=== PATIENT | male | born 1980 | race Hispanic/Latino ===

== ENCOUNTER 2021-04-04 16:19 | Emergency (ER) | payer OTHER, SELFPAY ==
[2021-04-04 16:21] VITALS: BP 123/108; PULSE 82; RESP 16; TEMP 35.7; O2SAT 98; BMI 26.9
--- NOTE | 2021-04-04 16:27 | EKG12_ITS ---
Test Reason : CP Blood Pressure : / mmHG Vent. Rate : 082 BPM Atrial Rate : 082 BPM P-R Int : 156 ms QRS Dur : 092 ms QT Int : 358 ms P-R-T Axes : 047 062 026 degrees QTc Int : 418 ms Normal sinus rhythm Normal ECG Confirmed by PADILLA HERNANDEZ MD ([id number]), scientific editor ROSIBEL SANTANA ([id number]) on 04/07/2021 9:46:49 AM Referred By: TESS Confirmed By:PADILLA HERNANDEZ MD
--- NOTE | 2021-04-04 17:01 | ED.VIS.CHEST ---
HPI History of Present Illness Chief Complaint: Chest Pain Informant: patient Onset/Context/Timing Onset: Weeks (1) Activity at onset: sudden and onset Timing: Intermittent and Lasts (20min - 1-2hrs) Quality: Positive for Sharp and Stabbing Location: Left Chest (With occasional discomfort in left upper arm associated with it) Current Severity: Gone Maximum Severity: Moderate Worsened By: - (Lying down at night); Not Worsened By Exertion, Movement of Arm, Movement of Torso, Palpation and Breathing Relieved By: Nothing Associated Symptoms: Positive for Diaphoresis, Dyspnea and Palpitations (Fast sometimes but not always. No irregular sensations.); Negative for Nausea, Vomiting, Cough, Fever, Lightheadedness and Acid Reflux Narrative Narrative: Patient presents out of concern for intermittent chest pain along with left upper extremity discomfort, sweating, and fast heartbeat at times associated with all of this. Occurs more often in the middle of the night, waking him up short of breath all of a sudden. States he stopped smoking sometime ago and now just vapes. He does not use any other illicit substances, including cocaine. He has never had this before. Does not recall anything changing a week ago such as diet, medications, lktp-[id number]-[id number] pills. He does not take any prescriptions. He denies any history of DVT or PE, no leg pain or swelling, no recent immobilization, long travel or travel out of the area, hospitalization, or surgery. CVD Risk Factors: Positive for Smoking; Negative for Hypertension, Diabetes, Hypercholesterolemia and Family History 1' </=55 PE Risk Factors: Negative for Recent Travel/Surgery, Recent Immobilization, Prior DVT or PE, Cancer and OCP + Smoking + >/=35 PFSH PFSH Medical History no medical history no medical history Home Medications pantoprazole 40 mg PO DAILY #30 tab 04/04/21 [Rx Last Taken Unknown] Allergy/AdvReac Type Severity Reaction Status Date / Time No Known Allergies Allergy Verified 04/04/21 16:20 Surgical History Hx of cholecystectomy Social History Smoking Status: Current every day smoker tobacco type: e-cigarettes ROS ROS ED Constitutional Constitutional ED: Reports sweats; Denies chills or fever(s) Eyes Eyes: Denies change in vision or diplopia ENT ENT ED: Denies rhinorrhea or sore throat Cardiovascular Cardiovascular: Reports chest pain, paroxysmal nocturnal dyspnea, pounding heartbeat and racing heartbeat; Denies orthopnea or pedal edema Respiratory/Chest Respiratory/Chest: Reports paroxysmal nocturnal dyspnea; Denies cough, dyspnea on exertion or orthopnea Gastrointestinal Gastrointestinal: Denies abdominal pain, diarrhea, nausea or vomiting Genitourinary Genitourinary ED: Denies dysuria or hematuria Musculoskeletal Musculoskeletal: Denies back pain or neck pain Integumentary Denies abscess or rash Neurologic Neurologic: Denies headache(s), paresthesias or weakness Psychiatric Psychiatric: Denies anxiety or suicidal thoughts EXAM Physical Exam Const Vital Signs: 04/04/21 16:21 04/04/21 16:45 04/04/21 17:50 Temperature 96.2 F L Temperature Source Temporal Pulse Rate 82 77 Respiratory Rate 16 19 H Respiratory Effort Normal Non-Labored Respiratory Pattern Normal Blood Pressure 123/108 H 123/84 H Blood Pressure Mean 113 97 Pulse Ox 98 99 Oxygen Delivery Method Room Air Room Air 04/04/21 18:10 Temperature Temperature Source Pulse Rate 77 Respiratory Rate 20 H Respiratory Effort Respiratory Pattern Blood Pressure 114/79 Blood Pressure Mean Pulse Ox 97 Oxygen Delivery Method Positive well nourished and well developed General Appearance ED: well developed and NAD HEENT Reports moist mucous membranes normocephalic and atraumatic Eyes PERRL and EOMs intact bilaterally Neck full ROM and supple Resp normal respiratory effort and clear to auscultation bilaterally Cardio regular rate, regular rhythm and no murmurs Rate: Negative for tachycardic GI non-tender and non-distended Auscultation: normoactive bowel sounds Palpation: soft Back/Spine no CVA tenderness General Back: other FROM Extremity normal to inspection and no calf tenderness General Extremety ED: Negative for edema, pulses abnormal or tenderness General Extremity: Negative for edema or pulses abnormal Neuro oriented x3, CN's II-XII intact bilaterally and no sensory deficits noted Sensorium / Orientation: awake and alert Motor Exam: strength 5/5 throughout Skin no rashes or lesions noted and no wounds Heart Score History: Moderately Suspicious ECG: Normal Age: </= 45 years Risk Factors: 1 or 2 Risk Factors Troponin: </= Normal Limit Score: 2 MDM MDM MDM Narrative Medical decision making narrative: Patient's PERC score is 0. Therefore no further work-up necessary in order to rule out pulmonary embolus at this time. His EKG is normal. His chest x-ray is normal, his enzymes are unremarkable and his blood counts are stable. Patient was reassured. Although I am not able to rule out the possibility of an intermittent dysrhythmia, since this occurs more often at night I suspect it is more likely to be esophageal/GI related. Possibilities include gastroesophageal reflux, esophageal spasm, this is not an exclusive list. Start the patient on a PPI and have him follow-up, he is comfortable with that plan. Supporting this, patient had an episode of the discomfort while he was here in the emergency department on the monitor. There were no dysrhythmias, ectopy, or changes in his rhythm strip on the monitor which was normal sinus rhythm in the seventies. He was given a GI cocktail and notes resolution of the discomfort. Lab Data Attestation: I reviewed the patient's lab results. Labs: Laboratory Results - last 24 hr 04/04/21 04/04/21 16:44 16:44 WBC 6.6 RBC 4.99 Hgb 14.6 Hct 43.1 MCV 86.4 MCH 29.3 MCHC 33.9 RDW Std Deviation 37.3 RDW Coeff of Dasia 11.9 Plt Count 317 MPV 9.6 Immature Gran % (Auto) 0.300 Neut % (Auto) 65.8 Lymph % (Auto) 24.1 Perkins % (Auto) 6.5 Eos % (Auto) 2.4 Baso % (Auto) 0.9 Absolute Neuts (auto) 4.3 Absolute Lymphs (auto) 1.59 Nucleated RBC % 0 Sodium 142 Potassium 3.8 Chloride 110 H Carbon Dioxide 25.0 Anion Gap 7 BUN 13 Creatinine 1.09 Estim Creat Clear Calc 76.80 Est GFR (MDRD) Af Amer 95 Est GFR (MDRD) Non-Af 79 BUN/Creatinine Ratio 11.9 Glucose 142 H Calcium 9.0 Troponin I High Sens 3 Radiography Diagnostic Testing: Clinical Impression(s) from Imaging Studies Chest X-Ray 04/04/21 17:05 IMPRESSION: Normal x-ray examination of the chest. Electronically Signed: Wilfredo Romano DO at 18:01 EST Tel [phone], Service support , Rhythm Strip Rhythm Strip: Sinus Rhythm Rate: 67 Ectopy: None EKG Initial EKG: Attestation: I personally reviewed and interpreted this EKG as follows: Interpretation: Sinus Rhythm and No Acute Injury Pattern Comments: Normal EKG Prior: No Prior Discharge Plan Triage Chief Complaint: Chest Pain ED Provider: Riaz Ramirez Dx/Rx/DC Orders Clinical Impression: Intermittent left-sided chest pain Instructions: ED Chest Pain, Uncertain Cause Prescriptions: New pantoprazole 40 mg tablet,delayed release (DR/EC) 40 mg PO DAILY Qty: 30 RF: 0 Primary Care Provider: Roland Prado Referrals: Roland Prado MD [Primary Care Provider] - 3-5 Days if not improving NOT,DEFINED [NON-STAFF] - Disposition Disposition: Home, Self Care Discharge Date/Time: 04/04/21 18:13
--- NOTE | 2021-04-04 17:05 | RAD_ITS ---
STUDY: X-RAY CHEST REASON FOR EXAM: Male, 40 years old. Intermittent chest pain TECHNIQUE: Frontal view COMPARISON: None. FINDINGS: The lungs are clear and expanded. There is no demonstrated pleural abnormality. Normal size heart. Normal mediastinum and chris. Normal visualized pulmonary arteries. Normal visualized aortic arch and descending thoracic aorta. Degenerative changes of the thoracic spine. Normal visualized ribs, clavicles, and shoulders. There is no demonstrated abnormality of the visualized soft tissue structures of the upper abdomen. RAD/Chest 1 View (Portable) IMPRESSION: Normal x-ray examination of the chest. Electronically Signed: Wilfredo Romano DO at 18:01 EST Tel [phone], Service support ,
[2021-04-04 17:13] LABS: Absolute Lymphocyte Count 1.59 X10^3/uL (0.83-4.51); Absolute Neutrophil Count 4.3 X10^3/uL (2.0-7.7); Basophil# 0.06 X10^3/uL; Basophil% 0.9 % (0-1); Eosinophil# 0.16 X10^3/uL; Eosinophils% 2.4 % (0-5); Hematocrit 43.1 % (40-54); Hemoglobin 14.6 g/dL (13.0-16.5); Lymphocyte # 1.59 X10^3/ul (0.83-4.51); Lymphocyte % 24.1 % (19-41); Mean Corp Hgb Conc 33.9 g/dL (32-36); Mean Corpuscular Hgb 29.3 pg (27.0-32.0); Mean Corpuscular Volume 86.4 fL (80-94); Mean Platelet Vol. 9.6 fl (6.2-12.0); Monocyte# 0.43 X10^3/uL; Monocyte% 6.5 % (0-10); NRBC Flagged by Analyzer 0 % (0-5); Neutrophil # 4.34 X10^3/uL (2.7-7.7); Neutrophil % 65.8 % (47-70); Platelet Count 317 K/mm3 (150-450); RBC Distribution Width CV 11.9 % (11.6-14.6); RBC Distribution Width SD 37.3 fl (35.1-43.9); Red Blood Count 4.99 M/mm3 (4.6-6.2); White Blood Count 6.6 K/mm3 (4.4-11.0)
[2021-04-04 17:26] LABS: Anion Gap 7 (5-15); BUN 13 mg/dL (7-18); BUN/Creat Ratio 11.9 RATIO (10-20); Chloride 110 mmol/L (98-107); Creatinine, Serum 1.09 mg/dL (0.70-1.30); EST Glomerular Filtration Rate 79 mL/min (>60); Est Glom Filt Rate - Afr Amer 95 mL/min (>60); Glucose 142 mg/dL (74-106); Potassium 3.8 mmol/L (3.5-5.1); Sodium Level 142 mmol/L (136-145); Troponin-I HS 3 pg/mL (3.0-78.0)
[2021-04-04] MEDS: Pantoprazole Sodium 40 MG Tablet PO (17:33)
[2021-04-04] MEDS: Mag Hydrox/Al Hydrox/Simeth 30 ML UDC PO (17:43)
[2021-04-04 17:50] VITALS: BP 123/84; PULSE 77; RESP 19; O2SAT 99
[2021-04-04 18:10] VITALS: BP 114/79; PULSE 77; RESP 20; O2SAT 97
== END 2021-04-04 18:13 | disposition home or self-care (01) ==
PROVIDERS: Emergency Provider Emergency Medicine; PCP Family Medicine
DX: R07.89 Other chest pain (principal); F17.210 Nicotine dependence, cigarettes, uncomplicated; Z90.49 Acquired absence of other specified parts of digestive tract; R06.02 Shortness of breath
CPT/HCPCS: 71045; 80048; 84484; 85025; 93005; 99284; A4216

== ENCOUNTER 2021-05-11 11:02 | Outpatient (CLI) | payer OTHER, SELFPAY ==
--- NOTE | 2021-05-11 11:10 | RAD_ITS ---
STUDY: X-RAY - LUMBOSACRAL SPINE REASON FOR EXAM: Male, 40 years old. PAIN TECHNIQUE: 6 view(s) of the lumbosacral spine were obtained including oblique views and flexion and extension views.. COMPARISON: None FINDINGS: Normal lumbar lordosis. There is no substantial scoliosis. There is normal alignment of the vertebrae. There is multilevel endplate spondylosis of the lumbar vertebrae. Normal disc space heights. Normal bilateral sacral ala, sacroiliac joints, and visualized sacrum. Normal visualized soft tissue structures. RAD/L/S Spine w Bend Min 6 Vw IMPRESSION: Degenerative changes of the spine, as detailed above. Electronically Signed: Jaden Alanis MD at 13:03 EST ,
[2021-05-11 12:33] LABS: Erythrocyte Sedimentation Rate 11 mm/hr (0-20)
[2021-05-11 13:08] LABS: AST(SGOT) 36 U/L (15-37); Alanine Aminotransfer ALT/SGPT 104 U/L (16-61); Albumin, Serum 4.4 g/dL (3.2-5.0); Alkaline Phosphatase 83 U/L (45-117); Anion Gap 5 (5-15); BUN 11 mg/dL (7-18); BUN/Creat Ratio 11.6 RATIO (10-20); Calcium,Total 9.3 mg/dL (8.5-10.1); Chloride 105 mmol/L (98-107); Creatinine, Serum 0.95 mg/dL (0.70-1.30); EST Glomerular Filtration Rate 93 mL/min (>60); Est Glom Filt Rate - Afr Amer 112 mL/min (>60); Globulin 4.5 g/dL (2.2-4.2); Glucose 89 mg/dL (74-106); Potassium 3.8 mmol/L (3.5-5.1); Protein, Total 8.9 g/dL (6.4-8.2); Sodium Level 138 mmol/L (136-145)
[2021-05-12 20:50] LABS: ANTINUCLEAR ANTIBODIES DIRECT Negative (Negative)
[2021-05-13 12:12] LABS: Hepatitis C Antibody Non-Reactive (Nonreactive)
[2021-05-15 17:07] LABS: Testosterone, Free 14.45 ng/dL (5.00-21.00)
[2021-05-15 19:09] LABS: Testosterone, % Free 2.79 % (1.50-4.20); Testosterone, Total 518 ng/dL (264-916)
== END 2021-05-11 23:59 | disposition short-term general hospital (02) ==
LOC: MTLAB 11:03
PROVIDERS: PCP Family Medicine; Referring Provider Family Medicine; Visit Provider Family Medicine
DX: M54.50 Low back pain, unspecified (principal); R53.83 Other fatigue; N52.9 Male erectile dysfunction, unspecified; L74.512 Primary focal hyperhidrosis, palms; F41.1 Generalized anxiety disorder; M43.06 Spondylolysis, lumbar region
CPT/HCPCS: 36415; 72114; 80053; 82306; 84402; 84403; 84443; 85652; 86038; 86803

== ENCOUNTER → 2022-08-18 | Outpatient (CLI) | payer OTHER, SELFPAY ==
[2022-08-18 10:39] LABS: Absolute Lymphocyte Count 1.78 X10^3/uL (0.83-4.51); Absolute Neutrophil Count 4.2 X10^3/uL (2.0-7.7); Basophil# 0.08 X10^3/uL; Basophil% 1.2 % (0-1); Eosinophil# 0.23 X10^3/uL; Eosinophils% 3.4 % (0-5); Hematocrit 50.1 % (40-54); Hemoglobin 16.7 g/dL (13.0-16.5); Lymphocyte # 1.78 X10^3/ul (0.83-4.51); Lymphocyte % 26.3 % (19-41); Mean Corp Hgb Conc 33.3 g/dL (32-36); Mean Corpuscular Hgb 29.5 pg (27.0-32.0); Mean Corpuscular Volume 88.4 fL (80-94); Mean Platelet Vol. 10.1 fl (6.2-12.0); Monocyte# 0.42 X10^3/uL; Monocyte% 6.2 % (0-10); NRBC Flagged by Analyzer 0 % (0-5); Neutrophil # 4.23 X10^3/uL (2.7-7.7); Neutrophil % 62.6 % (47-70); Platelet Count 304 K/mm3 (150-450); Red Blood Count 5.67 M/mm3 (4.6-6.2); White Blood Count 6.8 K/mm3 (4.4-11.0)
[2022-08-18 10:52] LABS: Vitamin D,25 Hydroxy 53.6 ng/mL
[2022-08-18 11:06] LABS: AST(SGOT) 27 U/L (15-37); Alanine Aminotransfer ALT/SGPT 56 U/L (16-61); Albumin, Serum 4.1 g/dL (3.2-5.0); Alkaline Phosphatase 67 U/L (45-117); Bilirubin, Direct 0.09 mg/dL (0.00-0.30); Ferritin 53 ng/mL (26-388); Globulin 4.1 g/dL (2.2-4.2); Protein, Total 8.2 g/dL (6.4-8.2)
[2022-08-22 06:37] LABS: Alpha Antitrypsin Serum 151 mg/dL (101-187); Beef <0.10 kU/L (Class 0); Chocolate <0.10 kU/L (Class 0); Corn <0.10 kU/L (Class 0); Egg, Whole <0.10 kU/L (Class 0); Milk (Cow) <0.10 kU/L (Class 0); Peanut <0.10 kU/L (Class 0); Pork <0.10 kU/L (Class 0); Soybean <0.10 kU/L (Class 0); Wheat <0.10 kU/L (Class 0)
[2022-08-23 07:07] LABS: Deamidated Gliadin IgA 6 units (0-19); Deamidated Gliadin IgG 2 units (0-19); Endomysial Antibody IgA Negative (Negative); Immunoglobulin A 277 mg/dL (90-386); Testosterone, % Free 2.49 % (1.50-4.20); Testosterone, Free 20.94 ng/dL (5.00-21.00); Testosterone, Total 841 ng/dL (264-916); t-Transglutaminase IgA <2 U/mL (0-3)
== END | disposition home or self-care (01) ==
LOC: MTLAB 07:15
PROVIDERS: PCP Family Medicine; Referring Provider Family Medicine; Visit Provider Family Medicine
DX: R53.83 Other fatigue (principal); E55.9 Vitamin D deficiency, unspecified; R74.01 Elevation of levels of liver transaminase levels
CPT/HCPCS: 36415; 80076; 82103; 82306; 82728; 82784; 83516; 84402; 84403; 85025; 86003; 86005; 86255

== ENCOUNTER 2022-12-27 16:30 | Outpatient (RCR) | payer OTHER, SELFPAY ==
--- NOTE | 2022-12-01 15:47 | HP.PTEVAL ---
Patient's Visit Information Visit Information Visit Information: LOPEZ KARIMI is a 42 year old M referred to Physical Therapy by SHILOH Caballero with a diagnosis of Left Shoulder Pain. 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 Off work since Nov 16 and he goes back to work tomorrow. His job requires him to have full function. He will be able to light duty starting tomorrow- he is not sure what his light duty will include. He is right hand dominate. He has pain at night- he normally sleeps on his left side. Pain is located in the anterior shoulder- more deep in the joint- Agg: over head, sleeping, lifting anything Worst: 7/10 Best: 0/10 Eases: ice, icy hot patches, lotion/creams, exercises from you tube. Describes the pain as achy. No radiating pain- does have some numbness in to his elbow. No issues with his hand. He had neck pain for the first few days after the injury but none since. No BRANCH, blurred vision or dizziness. Normally he is active outside of work. PMhx/Meds: see list in chart. Objective Objective: Posture: FH, RS- guarding of the left UE- can correct but does not maintain Gait: no deviation noted ROM: painful arc with flexion and abduction but does have full motion. IR: Lumbar with pain, ER: 30 degrees Cervical/Elbow/Wrist: WFL no pain Strength: Health Policy Nurse: Left: 100 Right: 100 Elbow: Flexion: 27 Extn: 35 Shoulder at neutral: extn: 28 (6/10) flexion: 36 (0/10) abd 25 (6/10) add: 39 (0/10) IR: 23 (6/10) ER: 13 (10/18) Special Tests L Shoulder Lift Off Test - Subscapular Tear: Positive L Shoulder Empty Can - SS: Positive L Shoulder Belly Press - SupScap: Positive L Shoulder Neer - Impingement: Positive L Shoulder Richardson Kareem - Impingement: Positive Balance/Special Test Scores Quick DASH Score: 29.5450 Goals Goal 1:: Patient will be I with HEP and progression Goal Time Frame: 4-6 Weeks Goal 2:: Patient will demo full pain free AROM of the left shoulder Goal Time Frame: 4-6 Weeks Goal 3:: Patient will maintain proper posture t/o tx session to demo increased scap s/s Goal Time Frame: 4-6 Weeks Goal 4:: Patient will report 80% improvement Goal Time Frame: 4-6 Weeks Rehabilitation Potential Physical Therapy Diagnosis: Patient presents with hypomobility- he has decreased pain free ROM scapular strength/stabilization and muscular endurance leading to poor posture and increased pain with ADL's. Rehabilitation Potential: Good Anticipated Interventions Patient/Client Instruction: Educate patient on: Benefits of Fitness Program Therapeutic Exercise to Include: Strength training, Endurance training, Body mechanics, Postural training, Flexibilty training, Passive ROM, Active ROM, Dynamic Lumbar Stabilization and Scapular Strength/Stabilization TENS: Yes Cryotherapy (ice pack, ice massage): Yes Thermo therapy (hot pack): Yes Ultrasound (thermal/non thermal): Yes Text: Thank you for the opportunity to evaluate your patient. For Medicare and Medicare HMO plans, please review the plan of care and approve it. It will need to be FAXED BACK to us at [phone] for Medicare purposes. For Medicare only, by signing this I certify the plan of care. Please let me know if there are questions or concerns regarding this plan of care. Physician Signature: Date:
--- NOTE | 2022-12-27 16:29 | HP.PTDCSUM ---
Discharge Summary D/C summary: It has been my pleasure to treat LOPEZ KARIMI referred by SHILOH Caballero, with the diagnosis of Left Shoulder Pain for a total of 8 visit(s). Discharge Date: Please see the following information for a summary of their discharge status. Subjective Subjective: Patient reports that he just saw the MD who released him to go back to work full duty. Reports the shoulder has full motion- gets more fatigued than anything else. No pain at all. Pain L SH: Pain Intensity (Out of 10): 0 Overall Improvement % Improvement: 95 Objective Objective/Function: Posture: good throughout Gait: no deviation noted ROM: WFL in all planes Strength: Shoulder: 5/5 in all planes, Elbow: 5/5 Palpation: no pain Goals Goal 1:: Patient will be I with HEP and progression Goal Progress: Goal Met Goal 2:: Patient will demo full pain free AROM of the left shoulder Goal Progress: Goal Met Goal 3:: Patient will maintain proper posture t/o tx session to demo increased scap s/s Goal Progress: Goal Met Goal 4:: Patient will report 80% improvement Goal Progress: Goal Met Plan Plan: 12/27/22: Discharge to I HEP- Scapular strength/stabilization- pain free ROM- modality of US and TENS PRN D/C Information d/c sentence: If there are questions or concerns regarding this patient's physical therapy, please feel free to call me at [phone]. Thank you for the referral of this patient. Sincerely, Carina Velásquez, DPT Balance/Gait/Functional tests Balance/Special Test Scores Quick DASH Score: 0 Improvement % Improvement: 95
== END 2022-12-27 19:00 | disposition home or self-care (01) ==
LOC: PT 16:30
PROVIDERS: PCP Family Medicine; Referring Provider Physician Assistant; Visit Provider Physician Assistant
DX: S46.912D Strain of unspecified muscle, fascia and tendon at shoulder and upper arm level, left arm, subsequent encounter (principal); S46.012D Strain of muscle(s) and tendon(s) of the rotator cuff of left shoulder, subsequent encounter
CPT/HCPCS: 97035; 97110; 97162; 97164